=== PATIENT | male | born 1965 | race Caucasian/White ===

== ENCOUNTER 2024-07-29 14:55 | Inpatient (IN) | payer OTHER ==
[2024-07-29 15:14] VITALS: BMI 26.4
[2024-07-29] MEDS ORDERED: NALTREXONE HCL 50 MG TABLET PO ONE (16:01)
[2024-07-29] MEDS ORDERED: MAG HYDROX/AL HYDROX/SIMETH 30 ML UNIT-DOSE CUP PO PRN (16:01)
[2024-07-29] MEDS ORDERED: ONDANSETRON *ODT* 4 MG TABLET SL PRN (16:01)
[2024-07-29] MEDS ORDERED: BENZOCAINE/MENTHOL (CHLORASEPTIC ) LOZENGE MM PRN (16:01)
[2024-07-29] MEDS ORDERED: IBUPROFEN 400 MG TABLET (FP) PO PRN (16:01)
[2024-07-29] MEDS ORDERED: LOPERAMIDE HCL 2 MG CAPSULE PO PRN (16:01)
[2024-07-29] MEDS ORDERED: BENZONATATE 200 MG CAPSULE PO PRN (16:01)
[2024-07-29] MEDS ORDERED: DICYCLOMINE HCL 10 MG CAPSULE PO PRN (16:01)
[2024-07-29] MEDS ORDERED: NICOTINE POLACRILEX 4 MG GUM BUC PRN (16:01)
[2024-07-29] MEDS ORDERED: chlordiazePOXIDE HCL 25 MG CAPSULE PO PRN (16:01)
[2024-07-29] MEDS ORDERED: BISMUTH SUBSALICYLATE 524 MG/30 ML PO PRN (16:01)
[2024-07-29] MEDS ORDERED: NALOXONE (NARCAN) HCL 4 MG/0.1 ML SPRAY NS PRN (16:01)
[2024-07-29] MEDS ORDERED: guaiFENesin 600 MG TABLET.ER (FP) PO PRN (16:01)
[2024-07-29] MEDS ORDERED: IBUPROFEN 600 MG TABLET (FP) PO ONE (16:57)
[2024-07-29] MEDS ORDERED: ALBUTEROL SO4 HFA INHALER IH ONE (16:57)
[2024-07-29] MEDS ORDERED: chlordiazePOXIDE HCL 25 MG CAPSULE ONE (16:57)
[2024-07-29] MEDS: chlordiazePOXIDE HCL 25 MG CAPSULE PO SCH (16:59)
[2024-07-29] MEDS: IBUPROFEN 600 MG TABLET (FP) PO PRN (16:59)
[2024-07-29] MEDS: ALBUTEROL SO4 HFA INHALER IH PRN (17:00)
[2024-07-29] MEDS: NALTREXONE HCL 50 MG TABLET PO ONE (18:03)
[2024-07-29] MEDS ORDERED: FLUTICASONE PROP 0.05% 16 GM NASAL SPRAY NS PRN (18:20)
[2024-07-29] MEDS: ACAMPROSATE CALCIUM 333 MG TABLET.DR PO SCH (22:30)
[2024-07-29] MEDS: THIAMINE 100 MG TABLET PO SCH (22:30)
[2024-07-29] MEDS: MIRTAZAPINE 15 MG TABLET (FP) PO SCH (22:30)
[2024-07-29] MEDS: MELATONIN 5 MG TABLETS PO SCH (22:31)
[2024-07-29] MEDS: BUDESONIDE/FORMETEROL FUMARATE 160/4.5 mcg INHALER IH SCH (22:32)
[2024-07-30] MEDS: ASPIRIN 81 MG CHEWABLE TABLETS PO SCH (10:45)
[2024-07-30] MEDS: NALTREXONE HCL 50 MG TABLET PO SCH (10:45)
[2024-07-30] MEDS: PRENATAL VITAMINS W/ FOLIC ACID TABLET (FP) PO SCH (10:45)
[2024-07-30] MEDS: NICOTINE 21 MG/24 HOURS TOPICAL PATCH TD SCH (10:47)
[2024-07-30] MEDS: RIVAROXABAN 10 MG TABLET PO SCH (15:00)
[2024-07-30 16:06] LABS: HIV INTERPRETATION NEGATIVE (NEGATIVE)
[2024-07-30] MEDS: ACETAMINOPHEN 325 MG TABLET (FP) PO PRN (22:30)
[2024-07-31] MEDS: chlordiazePOXIDE HCL 25 MG CAPSULE PO SCH (05:50)
[2024-07-31] MEDS: PANTOPRAZOLE 40 MG TABLET PO SCH (09:51)
[2024-07-31] MEDS: MAGNESIUM HYDROX 2400MG/30ML ORAL SUSPENSION 30 ML CUP PO PRN (10:18)
[2024-07-31 11:21] LABS: ABSOLUTE IMMATURE GRANULOCYTES 0.07 x10^3/uL (0.0-0.031); BASOPHILS # 0.06 x10^3/uL (0.01-0.08); EOSINOPHIL % 4.3 % (0.8-7.0); EOSINOPHILS # 0.28 x10^3/uL (0.04-0.54); HEMATOCRIT 40.1 % (40.1-51.0); HEMOGLOBIN 12.6 g/dL (13.7-17.5); MCHC 31.4 g/dl (32.3-36.5); MEAN CELL VOLUME 93.5 fl (79.0-92.2); MONOCYTE # 0.62 x10^3/uL (0.30-0.82); MONOCYTE % 9.5 % (5.3-12.2); PLATELET COUNT 309 x10^3/uL (163-337); RDW 12.1 % (12.2-16.4)
[2024-07-31 11:48] LABS: ALBUMIN 2.9 g/dl (3.4-5.0); CALCIUM 9.2 mg/dL (8.5-10.1)
[2024-07-31 11:50] LABS: BLOOD UREA NITROGEN 18.5 mg/dL (7-18)
[2024-07-31 11:53] LABS: BILIRUBIN,TOTAL 0.4 mg/dL (0.2-1); CREATININE 0.8 mg/dL (0.55-1.3); TOT PROT 5.8 g/dl (6.4-8.2)
[2024-07-31] MEDS: chlordiazePOXIDE HCL 10 MG CAPSULE PO SCH (13:08)
[2024-07-31] MEDS: predniSONE 20 MG TABLET (UD) PO SCH (13:12)
[2024-07-31] MEDS: POLYETHYLENE GLYCOL (HEALTHYLAX) 3350 17 GM PACKET PO PRN (13:13)
[2024-07-31] MEDS: ROFLUMILAST 500 MCG TABLET PO SCH (13:13)
[2024-08-01] MEDS ORDERED: chlordiazePOXIDE HCL 10 MG CAPSULE PO PRN
[2024-08-01] MEDS ORDERED: chlordiazePOXIDE HCL 10 MG CAPSULE PO SCH (05:00)
[2024-08-01] MEDS: chlordiazePOXIDE HCL 10 MG CAPSULE PO SCH (05:48)
[2024-08-01] MEDS: METHOCARBAMOL 500 MG TABLET PO PRN (13:09)
[2024-08-01] MEDS: hydrOXYzine PAMOATE 25 MG CAPSULE (FP) PO PRN (13:09)
[2024-08-01] MEDS: ALBUTEROL SO4 2.5/IPRATROPIUM 0.5 INH SOL 3 ML VIAL.NEB. NEB PRN (14:31)
[2024-08-02] MEDS ORDERED: chlordiazePOXIDE HCL 10 MG CAPSULE PO SCH (05:00)
[2024-08-02] MEDS: chlordiazePOXIDE HCL 10 MG CAPSULE PO ONE (05:50)
[2024-08-02 09:41] VITALS: BP 119/60; PULSE 88; RESP 18; TEMP 97.3
[2024-08-03] MEDS ORDERED: chlordiazePOXIDE HCL 10 MG CAPSULE PO ONE (05:00)
== END 2024-08-02 10:43 | disposition home or self-care (01) | DRG 897 ==
LOC: YASAS 14:55 → Y6N 16:57
PROVIDERS: ADMIT Allergy & Immunology; ATTEND Allergy & Immunology
PROC: HZ2ZZZZ Detoxification Services for Substance Abuse Treatment (ICD-10-PCS; principal; 2024-07-29)
DX: F10.230 Alcohol dependence with withdrawal, uncomplicated (principal); F14.20 Cocaine dependence, uncomplicated; F19.282 Other psychoactive substance dependence with psychoactive substance-induced sleep disorder; F17.210 Nicotine dependence, cigarettes, uncomplicated; F19.24 Other psychoactive substance dependence with psychoactive substance-induced mood disorder; F32.9 Major depressive disorder, single episode, unspecified; F43.10 Post-traumatic stress disorder, unspecified; G47.30 Sleep apnea, unspecified; J44.9 Chronic obstructive pulmonary disease, unspecified; K21.9 Gastro-esophageal reflux disease without esophagitis; Z86.718 Personal history of other venous thrombosis and embolism; Z79.01 Long term (current) use of anticoagulants; Z62.810 Personal history of physical and sexual abuse in childhood; Z63.8 Other specified problems related to primary support group; Z99.89 Dependence on other enabling machines and devices
CPT/HCPCS: 36415; 80053; 80305; 80307; 83690; 85025; 87389; 94640